=== PATIENT | female | born 1940 | race Caucasian/White ===

== ENCOUNTER 2017-07-27 12:59 | Emergency (ER) | payer OTHER ==
[~2017-07-27] VITALS: Ht 147.3 cm; Wt 64.4 kg
[~2017-07-27 12:59] MED LIST: ACET325 PO; ALBU.083IS IH; ALBU90OI6 INH; ALEN70 PO; ASCO500 PO; ASPI81CH; ASPI81CH PO; AZIT250 PO; BENADRYL25 MG PO; BENZ100A; BUME1 PO; Bumetanide0.5 MG PO; CEPH250A PO; CEPH500 PO; CHOL10002 PO; DOCU100 PO; FAMO20 PO; FELO5CR PO; FERR325 PO; FISH1000; FLUSAL1005 IH; FLUSAL2505 IH; FURO20 PO; Felodipine ER5 MG PO; LEVSOD100 PO; LEVSOD125 PO; LOSA50 PO; METF500 PO; METF500C; OMEP20ER; OMEP20ER PO; PLENDIL; POTA20PAC PO; POTCHL20ER PO; PRED10 PO; PRED20 PO; Prednisone20 MG PO; Prilosec Otc20 MG PO; VIT1CAPS12; VIT1CAPS12 PO; WARF3 PO; WARF4 PO
[2017-07-27] MEDS ORDERED: FLUT1DIS5 INH (14:28)
[2017-07-27 15:12] LABS: BASOPHILS ABSOLUTE AUTO 0.05 K/mm3 (0.00-0.23); BASOPHILS PERCENT AUTO 1 % (0-2); EOSINOPHILS ABSOLUTE AUTO 0.49 K/mm3 (0.00-0.68); EOSINOPHILS PERCENT AUTO 5 % (0-6); Hematocrit 40.4 % (33.0-51.0); Hemoglobin 12.5 g/dL (11.5-16.0); IMMATURE GRAN ABSOLUTE AUTO 0.03 K/mm3 (0.00-0.10); IMMATURE GRAN PERCENT AUTO 0 % (0-1); LYMPHOCYTES ABSOLUTE AUTO 2.57 K/mm3 (0.84-5.20); LYMPHOCYTES PERCENT AUTO 25 % (21-46); MONOCYTES ABSOLUTE AUTO 0.82 K/mm3 (0.16-1.47); MONOCYTES PERCENT AUTO 8 % (4-13); Mean Corpuscular HGB 26.2 pg (26.0-34.0); Mean Corpuscular HGB Conc 30.9 g/dL (31.5-36.5); Mean Corpuscular Volume 85 fL (80-100); Mean Platelet Volume 10.3 fL (9.1-12.4); NEUTROPHILS ABSOLUTE AUTO 6.41 K/mm3 (1.96-9.15); NEUTROPHILS PERCENT AUTO 62 % (41-73); Platelet Count 395 K/mm3 (150-400); RDW Coefficient Variation 15.6 % (11.7-14.2); RDW Standard Deviation 48.5 fL (35.1-46.3); Red Blood Cell Count 4.77 M/mm3 (3.80-5.20); White Blood Cell Count 10.37 K/mm3 (4.00-11.30)
[2017-07-27] MEDS ORDERED: DOCU100 PO (15:26)
[2017-07-27] MEDS ORDERED: LOSA50 PO ×2 (15:28)
[2017-07-27] MEDS ORDERED: TIROSINT100 MCG PO (15:28)
[2017-07-27 15:33] LABS: Alanine Aminotransfer (ALT/SGP 31 U/L (12-78); Albumin, Blood 3.4 g/dL (3.4-5.0); Albumin/Globulin Ratio 0.8 (0.8-1.8); Alk Phos 89 U/L (50-136); Anion Gap 7 mmol/L (6-16); Aspartate Aminotrans (AST/SGOT 18 U/L (12-37); Bilirubin, Total 0.2 mg/dL (0.1-1.0); Blood Urea Nitrogen 26 mg/dL (8-24); Bun/Creatinine Ratio 33.1 (12.0-20.0); CO2, Blood 27 mmol/L (21-32); Calcium, Blood 10.4 mg/dL (8.5-10.1); Chloride, Blood 105 mmol/L (98-108); Creatinine, Blood 0.79 mg/dL (0.40-1.00); Glomerular Filtration Rate >60 (60-); Glucose, Blood 78 mg/dL (70-99); Potassium, Blood 4.4 mmol/L (3.5-5.5); Sodium, Blood 139 mmol/L (136-145); Total Protein, Blood 7.4 g/dL (6.4-8.2)
== END 2017-07-27 17:25 | disposition home or self-care (01) ==
LOC: ER 12:59
PROVIDERS: Emergency Medicine
DX: I48.0 Paroxysmal atrial fibrillation (principal); J44.9 Chronic obstructive pulmonary disease, unspecified; Z87.891 Personal history of nicotine dependence
CPT/HCPCS: 36415; 80053; 85025; 93005; 93010; 99283

== ENCOUNTER → 2018-01-16 | Outpatient (CLI) | payer OTHER ==
[~2018-01-16] MED LIST changes: -ASPI81CH; +Bactrim Ds Tab1 EACH PO; +ELIQUIS5 MG PO; +FLUT1DIS5 INH; -METF500 PO; +METF850 PO; +TIROSINT100 MCG PO
[2018-01-16 13:46] LABS: Hematocrit 39.7 % (33.0-51.0); Hemoglobin 12.1 g/dL (11.5-16.0); Mean Corpuscular HGB 25.4 pg (26.0-34.0); Mean Corpuscular HGB Conc 30.5 g/dL (31.5-36.5); Mean Corpuscular Volume 83 fL (80-100); Mean Platelet Volume 10.6 fL (9.1-12.4); Platelet Count 365 K/mm3 (150-400); RDW Coefficient Variation 15.5 % (11.7-14.2); RDW Standard Deviation 46.9 fL (35.1-46.3); Red Blood Cell Count 4.76 M/mm3 (3.80-5.20); White Blood Cell Count 8.25 K/mm3 (4.00-11.30)
[2018-01-16 13:55] LABS: Alanine Aminotransfer (ALT/SGP 21 U/L (12-78); Albumin, Blood 3.4 g/dL (3.4-5.0); Albumin/Globulin Ratio 0.8 (0.8-1.8); Alk Phos 86 U/L (50-136); Anion Gap 10 mmol/L (6-16); Aspartate Aminotrans (AST/SGOT 15 U/L (12-37); Bilirubin, Total 0.3 mg/dL (0.1-1.0); Blood Urea Nitrogen 26 mg/dL (8-24); Bun/Creatinine Ratio 26.9 (12.0-20.0); CHOL/HDL RATIO 3.4; CO2, Blood 27 mmol/L (21-32); Calcium, Blood 9.6 mg/dL (8.5-10.1); Chloride, Blood 105 mmol/L (98-108); Cholesterol 169 mg/dL (50-200); Creatinine, Blood 0.97 mg/dL (0.40-1.00); Globulin, Blood 4.3 g/dL (2.2-4.0); Glomerular Filtration Rate 59 (60-); Glucose, Blood 100 mg/dL (70-99); HDL Cholesterol 50 mg/dL (>39); Low Density Lipoprotein Chol 99 mg/dL (0-110); Potassium, Blood 3.8 mmol/L (3.5-5.5); Sodium, Blood 142 mmol/L (136-145); Total Protein, Blood 7.7 g/dL (6.4-8.2); Triglycerides 100 mg/dL (30-160); Very Low Density Lipoprot Chol 20 mg/dL (6-32)
== END | disposition home or self-care (01) ==
LOC: LAB SHORT 08:07 → LAB 08:07
PROVIDERS: Family Medicine
DX: I10 Essential (primary) hypertension (principal); E78.5 Hyperlipidemia, unspecified; E03.9 Hypothyroidism, unspecified; E11.9 Type 2 diabetes mellitus without complications
CPT/HCPCS: 36415; 80053; 80061; 83036; 84443; 85027

== ENCOUNTER → 2018-04-30 | Outpatient (CLI) | payer OTHER ==
[2018-04-30 14:34] LABS: BASOPHILS ABSOLUTE AUTO 0.06 K/mm3 (0.00-0.23); BASOPHILS PERCENT AUTO 1 % (0-2); EOSINOPHILS PERCENT AUTO 4 % (0-6); Hemoglobin 11.4 g/dL (11.5-16.0); IMMATURE GRAN ABSOLUTE AUTO 0.02 K/mm3 (0.00-0.10); IMMATURE GRAN PERCENT AUTO 0 % (0-1); LYMPHOCYTES ABSOLUTE AUTO 2.42 K/mm3 (0.84-5.20); LYMPHOCYTES PERCENT AUTO 24 % (21-46); MONOCYTES ABSOLUTE AUTO 0.88 K/mm3 (0.16-1.47); MONOCYTES PERCENT AUTO 9 % (4-13); Mean Corpuscular HGB 25.4 pg (26.0-34.0); Mean Corpuscular HGB Conc 31.7 g/dL (31.5-36.5); Mean Corpuscular Volume 80 fL (80-100); Mean Platelet Volume 9.6 fL (9.1-12.4); NEUTROPHILS ABSOLUTE AUTO 6.27 K/mm3 (1.96-9.15); NEUTROPHILS PERCENT AUTO 62 % (41-73); Platelet Count 335 K/mm3 (150-400); RDW Coefficient Variation 16.7 % (11.7-14.2); RDW Standard Deviation 48.8 fL (35.1-46.3); Red Blood Cell Count 4.48 M/mm3 (3.80-5.20); White Blood Cell Count 10.05 K/mm3 (4.00-11.30)
[2018-04-30 14:51] LABS: Albumin, Blood 3.4 g/dL (3.4-5.0); Albumin/Globulin Ratio 0.9 (0.8-1.8); Bilirubin, Total 0.1 mg/dL (0.1-1.0); Bun/Creatinine Ratio 24.5 (12.0-20.0); Calcium, Blood 10.2 mg/dL (8.5-10.1); Creatinine, Blood 0.94 mg/dL (0.40-1.00); Globulin, Blood 3.9 g/dL (2.2-4.0); Total Protein, Blood 7.3 g/dL (6.4-8.2)
== END ==
LOC: LAB SHORT 14:30 → LAB EV 14:30
PROVIDERS: Emergency Medicine
DX: R53.83 Other fatigue (principal)
CPT/HCPCS: 80053; 85025; 87077; 87086; 87186

== ENCOUNTER → 2018-05-03 | Outpatient (CLI) | payer OTHER ==
[2018-05-03 10:12] LABS: Source, Urine Clean Catch
[2018-05-03 10:23] LABS: Bilirubin, Urine Neg (Neg); Blood, Urine 4+ (Neg); Glucose Qualitative, Urine Neg (Neg); Ketones, Urine Neg (Neg); Leukocyte Esterase, Urine 2+ (Neg); Nitrite, Urine Neg (Neg); Protein, Urine 1+ (Neg); Urobilinogen, Urine NORM (Normal); pH, Urine 6.5 (5.0-8.0)
[2018-05-03 10:31] LABS: Appearance, Urine Hazy (Clear); Color, Urine Yellow (P-Yellow)
[2018-05-03 10:32] LABS: Bacteria Rare /hpf; Squamous Epithelial Cells Few /hpf (Few)
== END | disposition home or self-care (01) ==
LOC: LAB 10:09 → LAB SHORT 10:09
PROVIDERS: Family Medicine
DX: N39.0 Urinary tract infection, site not specified (principal)
CPT/HCPCS: 81001; 87086

== ENCOUNTER → 2018-06-18 | Outpatient (CLI) | payer OTHER | LOC: LAB SHORT 14:23 → LAB 14:23 | DX: R82.90 Unspecified abnormal findings in urine (principal); R35.0 Frequency of micturition | CPT/HCPCS: 87077; 87086; 87186 ==

== ENCOUNTER → 2018-07-11 | Outpatient (CLI) | payer OTHER ==
[2018-07-12 11:00] LABS: Bilirubin, Urine Neg (Neg); Blood, Urine 5+ (Neg); Glucose Qualitative, Urine Neg (Neg); Ketones, Urine Neg (Neg); Leukocyte Esterase, Urine 3+ (Neg); Nitrite, Urine Pos (Neg); Protein, Urine 2+ (Neg); Specific Gravity, Urine 1.015 (1.003-1.022); Urobilinogen, Urine NORM (Normal)
[2018-07-12 11:06] LABS: Appearance, Urine Hazy (Clear); Color, Urine Yellow (P-Yellow)
[2018-07-12 11:07] LABS: Bacteria Many /hpf; Red Blood Cells, Urine 50-100 /hpf (0-2); White Blood Cells, Urine 50-100 /hpf (0-5)
[2018-07-12 11:08] LABS: Calcium Oxalate Crystals Many /hpf; Squamous Epithelial Cells Mod /hpf (Few)
[2018-07-12 11:09] LABS: Transitional Epithelial Cells Few /hpf (0-Rare)
== END | disposition home or self-care (01) ==
LOC: LAB 05:00 → LAB SHORT 05:00
PROVIDERS: Family Medicine
DX: N39.0 Urinary tract infection, site not specified (principal)
CPT/HCPCS: 81001; 87077; 87086; 87186

== ENCOUNTER 2019-01-01 18:55 | Emergency (ER) | payer OTHER ==
[~2019-01-01] VITALS: Ht 147.3 cm; Wt 59.0 kg
[~2019-01-01 18:55] MED LIST changes: -Bumetanide0.5 MG PO; +Bumetanide1 MG PO; +LOSA25 PO
[2019-01-01] MEDS ORDERED: FLUT1DIS5 INH (19:14)
[2019-01-01] MEDS ORDERED: FERSU300 PO (19:16)
[2019-01-01] MEDS ORDERED: METO25ER PO (19:17)
[2019-01-01] MEDS ORDERED: VITAMIN B-121000 MC2 PO (19:19)
[2019-01-01] MEDS ORDERED: ALBU3IS INH (19:21)
[2019-01-01] MEDS ORDERED: Zofran8 MG PO (19:22)
[2019-01-01] MEDS ORDERED: Pedi-Dri 100,0060 GM TOP (19:23)
[2019-01-01 19:45] LABS: BASOPHILS ABSOLUTE AUTO 0.05 K/mm3 (0.00-0.23); BASOPHILS PERCENT AUTO 0 % (0-2); EOSINOPHILS ABSOLUTE AUTO 0.04 K/mm3 (0.00-0.68); EOSINOPHILS PERCENT AUTO 0 % (0-6); Hematocrit 42.6 % (33.0-51.0); Hemoglobin 13.3 g/dL (11.5-16.0); IMMATURE GRAN ABSOLUTE AUTO 0.07 K/mm3 (0.00-0.10); IMMATURE GRAN PERCENT AUTO 0 % (0-1); LYMPHOCYTES PERCENT AUTO 9 % (21-46); MONOCYTES ABSOLUTE AUTO 1.13 K/mm3 (0.16-1.47); MONOCYTES PERCENT AUTO 7 % (4-13); Mean Corpuscular HGB 29.3 pg (26.0-34.0); Mean Corpuscular HGB Conc 31.2 g/dL (31.5-36.5); Mean Corpuscular Volume 94 fL (80-100); Mean Platelet Volume 10.2 fL (9.1-12.4); NEUTROPHILS ABSOLUTE AUTO 13.36 K/mm3 (1.96-9.15); NEUTROPHILS PERCENT AUTO 83 % (41-73); Platelet Count 325 K/mm3 (150-400); RDW Coefficient Variation 15.2 % (11.7-14.2); RDW Standard Deviation 53.1 fL (35.1-46.3); Red Blood Cell Count 4.54 M/mm3 (3.80-5.20); White Blood Cell Count 16.05 K/mm3 (4.00-11.30)
[2019-01-01 20:08] LABS: Alanine Aminotransfer (ALT/SGP 25 U/L (12-78); Albumin, Blood 3.3 g/dL (3.4-5.0); Albumin/Globulin Ratio 0.8 (0.8-1.8); Alk Phos 76 U/L (50-136); Anion Gap 8 mmol/L (6-16); Aspartate Aminotrans (AST/SGOT 22 U/L (12-37); Bilirubin, Total 0.5 mg/dL (0.1-1.0); Blood Urea Nitrogen 16 mg/dL (8-24); Bun/Creatinine Ratio 22.1 (12.0-20.0); CO2, Blood 24 mmol/L (21-32); Calcium, Blood 9.8 mg/dL (8.5-10.1); Chloride, Blood 106 mmol/L (98-108); Creatinine, Blood 0.72 mg/dL (0.40-1.00); Globulin, Blood 4.2 g/dL (2.2-4.0); Glomerular Filtration Rate >60 (60-); Glucose, Blood 194 mg/dL (70-99); Potassium, Blood 3.9 mmol/L (3.5-5.5); Sodium, Blood 138 mmol/L (136-145); Total Protein, Blood 7.5 g/dL (6.4-8.2)
[2019-01-01] MEDS ORDERED: Augmentin 875-1 EACH PO (20:26)
== END 2019-01-01 21:37 | disposition home or self-care (01) ==
LOC: ER 18:55
PROVIDERS: Emergency Medicine
DX: I48.91 Unspecified atrial fibrillation (principal); J40 Bronchitis, not specified as acute or chronic; J44.9 Chronic obstructive pulmonary disease, unspecified; I50.9 Heart failure, unspecified; Z79.899 Other long term (current) drug therapy; Z79.82 Long term (current) use of aspirin; Z79.84 Long term (current) use of oral hypoglycemic drugs; Z79.51 Long term (current) use of inhaled steroids; Z79.01 Long term (current) use of anticoagulants; Z99.81 Dependence on supplemental oxygen; Z87.891 Personal history of nicotine dependence
CPT/HCPCS: 36415; 71045; 80053; 84484; 85025; 93005; 93010; 99285-25

== ENCOUNTER 2019-01-04 11:52 | Emergency (ER) | payer OTHER ==
[~2019-01-04] VITALS: Ht 147.3 cm; Wt 61.2 kg
[~2019-01-04 11:52] MED LIST changes: +ALBU3IS INH; +Augmentin 875-1 EACH PO; +FERSU300 PO; +METO25ER PO; +Pedi-Dri 100,0060 GM TOP; +VITAMIN B-121000 MC2 PO; +Zofran8 MG PO
[2019-01-04 12:33] LABS: BASOPHILS ABSOLUTE AUTO 0.03 K/mm3 (0.00-0.23); BASOPHILS PERCENT AUTO 0 % (0-2); EOSINOPHILS ABSOLUTE AUTO 0.24 K/mm3 (0.00-0.68); EOSINOPHILS PERCENT AUTO 2 % (0-6); Hematocrit 40.4 % (33.0-51.0); Hemoglobin 12.7 g/dL (11.5-16.0); IMMATURE GRAN ABSOLUTE AUTO 0.05 K/mm3 (0.00-0.10); IMMATURE GRAN PERCENT AUTO 1 % (0-1); LYMPHOCYTES ABSOLUTE AUTO 1.31 K/mm3 (0.84-5.20); LYMPHOCYTES PERCENT AUTO 13 % (21-46); MONOCYTES ABSOLUTE AUTO 0.86 K/mm3 (0.16-1.47); MONOCYTES PERCENT AUTO 9 % (4-13); Mean Corpuscular HGB 28.7 pg (26.0-34.0); Mean Corpuscular HGB Conc 31.4 g/dL (31.5-36.5); Mean Platelet Volume 10.4 fL (9.1-12.4); NEUTROPHILS PERCENT AUTO 75 % (41-73); Platelet Count 295 K/mm3 (150-400); RDW Standard Deviation 49.9 fL (35.1-46.3); Red Blood Cell Count 4.42 M/mm3 (3.80-5.20); White Blood Cell Count 10.09 K/mm3 (4.00-11.30)
[2019-01-04 12:37] LABS: Mean Corpuscular Volume 91 fL (80-100)
[2019-01-04 12:52] LABS: Alanine Aminotransfer (ALT/SGP 22 U/L (12-78); Albumin, Blood 2.9 g/dL (3.4-5.0); Albumin/Globulin Ratio 0.7 (0.8-1.8); Alk Phos 78 U/L (50-136); Anion Gap 8 mmol/L (6-16); Aspartate Aminotrans (AST/SGOT 25 U/L (12-37); Bilirubin, Total 0.5 mg/dL (0.1-1.0); Blood Urea Nitrogen 17 mg/dL (8-24); Bun/Creatinine Ratio 23.1 (12.0-20.0); CO2, Blood 27 mmol/L (21-32); Calcium, Blood 9.9 mg/dL (8.5-10.1); Chloride, Blood 108 mmol/L (98-108); Creatinine, Blood 0.74 mg/dL (0.40-1.00); Globulin, Blood 4.2 g/dL (2.2-4.0); Glomerular Filtration Rate >60 (60-); Glucose, Blood 107 mg/dL (70-99); Potassium, Blood 4.2 mmol/L (3.5-5.5); Sodium, Blood 143 mmol/L (136-145); Total Protein, Blood 7.1 g/dL (6.4-8.2)
[2019-01-04] MEDS ORDERED: BENZ100A PO ×2 (13:22→13:53)
== END 2019-01-04 14:54 | disposition home or self-care (01) ==
LOC: ER 11:52
PROVIDERS: Physician Assistant
DX: J40 Bronchitis, not specified as acute or chronic (principal); R04.2 Hemoptysis; I48.91 Unspecified atrial fibrillation; Z79.899 Other long term (current) drug therapy; Z79.01 Long term (current) use of anticoagulants; Z79.84 Long term (current) use of oral hypoglycemic drugs
CPT/HCPCS: 36415; 71046; 80053; 85025; 93005; 93010; 99284-25

== ENCOUNTER 2019-03-17 17:47 | Inpatient (IN) | payer OTHER ==
[~2019-03-17] VITALS: Ht 147.3 cm; Wt 54.6 kg
[~2019-03-17 17:47] MED LIST changes: +ALBU2.5V5 NEB; -ALBU3IS INH; +BENZ100A PO; -CHOL10002 PO; +ELIQUIS2.5 MG PO; -ELIQUIS5 MG PO; +METF500 PO; -METF850 PO; -METO25ER PO; +METO50ER PO; +POTA10T PO; -POTCHL20ER PO; +VITAMIN D32000 UNI3 PO
[2019-03-17 18:32] LABS: BASOPHILS ABSOLUTE AUTO 0.05 K/mm3 (0.00-0.23); BASOPHILS PERCENT AUTO 1 % (0-2); EOSINOPHILS ABSOLUTE AUTO 0.37 K/mm3 (0.00-0.68); EOSINOPHILS PERCENT AUTO 3 % (0-6); Hematocrit 38.6 % (33.0-51.0); Hemoglobin 12.1 g/dL (11.5-16.0); IMMATURE GRAN ABSOLUTE AUTO 0.03 K/mm3 (0.00-0.10); IMMATURE GRAN PERCENT AUTO 0 % (0-1); LYMPHOCYTES ABSOLUTE AUTO 1.59 K/mm3 (0.84-5.20); LYMPHOCYTES PERCENT AUTO 15 % (21-46); MONOCYTES ABSOLUTE AUTO 0.78 K/mm3 (0.16-1.47); MONOCYTES PERCENT AUTO 7 % (4-13); Mean Corpuscular HGB 29.7 pg (26.0-34.0); Mean Corpuscular HGB Conc 31.3 g/dL (31.5-36.5); Mean Corpuscular Volume 95 fL (80-100); Mean Platelet Volume 10.1 fL (9.1-12.4); NEUTROPHILS ABSOLUTE AUTO 7.95 K/mm3 (1.96-9.15); NEUTROPHILS PERCENT AUTO 74 % (41-73); Platelet Count 304 K/mm3 (150-400); RDW Coefficient Variation 14.1 % (11.7-14.2); RDW Standard Deviation 49.1 fL (35.1-46.3); Red Blood Cell Count 4.07 M/mm3 (3.80-5.20); White Blood Cell Count 10.77 K/mm3 (4.00-11.30)
[2019-03-17 18:52] LABS: Albumin, Blood 3.2 g/dL (3.4-5.0); Albumin/Globulin Ratio 0.9 (0.8-1.8); Bilirubin, Total 0.3 mg/dL (0.1-1.0); Bun/Creatinine Ratio 18.1 (12.0-20.0); Calcium, Blood 9.9 mg/dL (8.5-10.1); Creatinine, Blood 0.99 mg/dL (0.40-1.00); Globulin, Blood 3.7 g/dL (2.2-4.0); Potassium, Blood 4.2 mmol/L (3.5-5.5); Total Protein, Blood 6.9 g/dL (6.4-8.2); Troponin I 0.021 ng/mL (0.000-0.040)
[2019-03-17] MEDS ORDERED: BENZ100A PO (20:39)
[2019-03-17] MEDS ORDERED: ACET325 PO (20:52)
[2019-03-17] MEDS ORDERED: Calcium Carbon500 MG PO (21:00)
[2019-03-17] MEDS ORDERED: Anti-Diarrheal2 MG PO (21:01)
[2019-03-17] MEDS ORDERED: [UNRECOGNIZED DRUG - OTHER] TOP (21:03)
[2019-03-17] MEDS ORDERED: MIRALAX17 GM PO (21:05)
[2019-03-17] MEDS ORDERED: Preparation H1 EAC1 PR (21:07)
[2019-03-17] MEDS ORDERED: Proctosol HC30 GM PR (21:07)
[2019-03-18 04:16] LABS: Bun/Creatinine Ratio 13.9 (12.0-20.0); Calcium, Blood 9.3 mg/dL (8.5-10.1); Creatinine, Blood 1.15 mg/dL (0.40-1.00); Magnesium, Blood 1.8 mg/dL (1.6-2.4); Potassium, Blood 4.2 mmol/L (3.5-5.5)
--- NOTE | 2019-03-18 06:50 | NUR ---
arrived from er very wet and confused, changed clothes and bedding got her ready for sleep eduardo, call light in reach, a+o, compliant with care, no more complaints of sob, no s/sx of confusion, bsr shared with pt and day staff
--- NOTE | 2019-03-18 18:40 | NUR ---
SHIFT SUMMARY PT HAD AN UNEVENTFUL DAY. PT IS A-FIB ON TELE AND REMAINS ON 2LNC PER HOME O2 SETTINGS. PT HAD MULTIPLE VISITORS THS AFTERNOON AND SEEMED TO ENJOY THE ATTENTION. PT IS INCONTINENT AT TIMES, SO IT IS DIFFICULT TO GET ACCURATE I&O'S. VITALS HAVE BEEN STABLE.
--- NOTE | 2019-03-19 03:07 | NUR ---
SHIFT SUMMARY: 78 Y/O FEMALE RESTED COMFORTABLY ALL SHIFT LOW FOWLERS, TELEMETRY REFLECTS A/FIB WITH BBB AND HEART RATE 100 PER [place] [employer] APPLICATIONS ANALYST, PASSED LARGE AMOUNTS URINE VIA ATTENDS AFTER LASIX WAS GIVEN PRIOR START OF THIS SHIFT, DENIES PAIN OR NAUSEA, HAPPY AND COOPERATIVE, BED LOW POSITION WITH CALL LIGHT AT SIDE.
--- NOTE | 2019-03-19 06:00 | NUR ---
ASSUMED CARE AT AT 0330. CONVERSIVE AND NO ACUTE ISSUES. NO CHANGE FROM ABOVE NOTE. VOIDED INCINTINENT AND ON BED PANTOJA
--- NOTE | 2019-03-19 09:00 | NUR ---
ASSUMED CARE AT APPROXIMATELY 0800 PT ALERT AND ORIENTED. VS STABLE. O2 SATS REMAIN ABOVE 90% ON 2L NC. DR. SKY IN WITH NEW ORDERS TO REPLACE POTASSIUM AND THEN PT ABLE TO DISCHARGE THIS AFTERNOON. WILL CONTINUE TO MONITOR CLOSELY.
[2019-03-19 09:18] LABS: Bun/Creatinine Ratio 17.5 (12.0-20.0); Calcium, Blood 9.8 mg/dL (8.5-10.1); Creatinine, Blood 1.03 mg/dL (0.40-1.00); Potassium, Blood 3.1 mmol/L (3.5-5.5)
[2019-03-19] MEDS ORDERED: Preparation H26 GM PR (15:35)
[2019-03-19] MEDS ORDERED: POTCHL20ER PO (15:36)
[2019-03-19] MEDS ORDERED: EUTHYROX200 MCG PO (15:36)
--- NOTE | 2019-03-19 16:04 | NUR ---
UPDATE DISCHARGE INSTRUCTIONS PROVIDED. IV REMOVED. MEDICATIONS FAXED TO [facility]. PT DRESSED AND WAITING FOR TRANSPORT. PT HAS PORTABLE O2 FOR TRANSPORTATION.
== END 2019-03-19 16:48 | disposition other institution (70) | DRG 291 ==
LOC: ER 17:47 → PCU 19:50
PROVIDERS: Emergency Medicine; Internal Medicine Endocrinology, Diabetes & Metabolism; ADMIT Hospitalist
DX: I11.0 Hypertensive heart disease with heart failure (principal); J18.9 Pneumonia, unspecified organism; T17.400A Unspecified foreign body in trachea causing asphyxiation, initial encounter; J44.0 Chronic obstructive pulmonary disease with (acute) lower respiratory infection; I50.33 Acute on chronic diastolic (congestive) heart failure; E11.9 Type 2 diabetes mellitus without complications; K21.9 Gastro-esophageal reflux disease without esophagitis; E03.9 Hypothyroidism, unspecified; D50.9 Iron deficiency anemia, unspecified; I48.0 Paroxysmal atrial fibrillation; Z79.01 Long term (current) use of anticoagulants; Z99.81 Dependence on supplemental oxygen; Z87.891 Personal history of nicotine dependence
CPT/HCPCS: 36415; 71046; 80048; 80053; 82947; 83735; 83880; 84145; 84484; 85025; 92610; 93005; 93010; 93306; 94640; 94760; 96365; 96367; 96375; 99285-25; A9270; J0456; J0696; J1940; J3480; J7050

== ENCOUNTER 2019-05-03 18:24 | Emergency (ER) | payer OTHER ==
[~2019-05-03] VITALS: Ht 147.3 cm; Wt 52.2 kg
[~2019-05-03 18:24] MED LIST changes: +Anti-Diarrheal2 MG PO; +Calcium Carbon500 MG PO; +EUTHYROX200 MCG PO; +MIRALAX17 GM PO; +POTCHL20ER PO; +Preparation H1 EAC1 PR; +Preparation H26 GM PR; +Proctosol HC30 GM PR; +[UNRECOGNIZED DRUG - OTHER] TOP
[2019-05-03] MEDS ORDERED: TRELEGY ELLIPT1 EACH INH (18:55)
[2019-05-03] MEDS ORDERED: ONDA4 PO (18:58)
[2019-05-03 19:07] LABS: BASOPHILS ABSOLUTE AUTO 0.04 K/mm3 (0.00-0.23); BASOPHILS PERCENT AUTO 0 % (0-2); EOSINOPHILS ABSOLUTE AUTO 0.21 K/mm3 (0.00-0.68); EOSINOPHILS PERCENT AUTO 2 % (0-6); Hemoglobin 12.4 g/dL (11.5-16.0); IMMATURE GRAN ABSOLUTE AUTO 0.05 K/mm3 (0.00-0.10); IMMATURE GRAN PERCENT AUTO 0 % (0-1); LYMPHOCYTES ABSOLUTE AUTO 1.49 K/mm3 (0.84-5.20); LYMPHOCYTES PERCENT AUTO 13 % (21-46); MONOCYTES ABSOLUTE AUTO 0.66 K/mm3 (0.16-1.47); MONOCYTES PERCENT AUTO 6 % (4-13); Mean Corpuscular HGB 29.1 pg (26.0-34.0); Mean Corpuscular Volume 94 fL (80-100); Mean Platelet Volume 10.4 fL (9.1-12.4); NEUTROPHILS ABSOLUTE AUTO 9.33 K/mm3 (1.96-9.15); NEUTROPHILS PERCENT AUTO 79 % (41-73); Platelet Count 255 K/mm3 (150-400); RDW Coefficient Variation 14.7 % (11.7-14.2); RDW Standard Deviation 50.7 fL (35.1-46.3); Red Blood Cell Count 4.26 M/mm3 (3.80-5.20); White Blood Cell Count 11.78 K/mm3 (4.00-11.30)
[2019-05-03 19:20] LABS: Albumin, Blood 3.2 g/dL (3.4-5.0); Albumin/Globulin Ratio 0.9 (0.8-1.8); Bilirubin, Total 0.2 mg/dL (0.1-1.0); Bun/Creatinine Ratio 24.8 (12.0-20.0); Calcium, Blood 9.8 mg/dL (8.5-10.1); Creatinine, Blood 1.05 mg/dL (0.40-1.00); Globulin, Blood 3.4 g/dL (2.2-4.0); Total Protein, Blood 6.6 g/dL (6.4-8.2)
[2019-05-03 19:21] LABS: Troponin I 0.023 ng/mL (0.000-0.040)
[2019-05-03] MEDS ORDERED: PRED10 PO (19:59)
== END 2019-05-03 20:36 | disposition home or self-care (01) ==
LOC: ER 18:24
PROVIDERS: Emergency Medicine
DX: J44.1 Chronic obstructive pulmonary disease with (acute) exacerbation (principal); I11.0 Hypertensive heart disease with heart failure; I50.9 Heart failure, unspecified; I48.91 Unspecified atrial fibrillation; Z87.891 Personal history of nicotine dependence
CPT/HCPCS: 71045; 80053; 83880; 84484; 85025; 93005; 93010; 94644; 96374; 99284-25; J2930

== ENCOUNTER 2019-05-06 20:04 | Inpatient (IN) | payer OTHER ==
[~2019-05-06] VITALS: Ht 147.3 cm; Wt 55.3 kg
[~2019-05-06 20:04] MED LIST changes: +ONDA4 PO; +TRELEGY ELLIPT1 EACH INH
[2019-05-06 20:23] LABS: BASOPHILS ABSOLUTE AUTO 0.02 K/mm3 (0.00-0.23); BASOPHILS PERCENT AUTO 0 % (0-2); EOSINOPHILS ABSOLUTE AUTO 0.01 K/mm3 (0.00-0.68); EOSINOPHILS PERCENT AUTO 0 % (0-6); Hematocrit 44.6 % (33.0-51.0); Hemoglobin 13.7 g/dL (11.5-16.0); IMMATURE GRAN ABSOLUTE AUTO 0.08 K/mm3 (0.00-0.10); IMMATURE GRAN PERCENT AUTO 1 % (0-1); LYMPHOCYTES ABSOLUTE AUTO 1.95 K/mm3 (0.84-5.20); LYMPHOCYTES PERCENT AUTO 15 % (21-46); MONOCYTES ABSOLUTE AUTO 0.85 K/mm3 (0.16-1.47); MONOCYTES PERCENT AUTO 6 % (4-13); Mean Corpuscular HGB 29.1 pg (26.0-34.0); Mean Corpuscular HGB Conc 30.7 g/dL (31.5-36.5); Mean Corpuscular Volume 95 fL (80-100); Mean Platelet Volume 10.6 fL (9.1-12.4); NEUTROPHILS ABSOLUTE AUTO 10.42 K/mm3 (1.96-9.15); NEUTROPHILS PERCENT AUTO 78 % (41-73); Platelet Count 274 K/mm3 (150-400); RDW Coefficient Variation 15.2 % (11.7-14.2); Red Blood Cell Count 4.71 M/mm3 (3.80-5.20); White Blood Cell Count 13.33 K/mm3 (4.00-11.30)
[2019-05-06 20:25] LABS: PO2 Arterial 157 mmHg (80-100); pH Blood Arterial 7.35 (7.35-7.45)
[2019-05-06 20:46] LABS: Albumin, Blood 3.5 g/dL (3.4-5.0); Albumin/Globulin Ratio 0.9 (0.8-1.8); Bilirubin, Total 0.4 mg/dL (0.1-1.0); Bun/Creatinine Ratio 33.3 (12.0-20.0); Creatinine, Blood 1.14 mg/dL (0.40-1.00); Globulin, Blood 3.7 g/dL (2.2-4.0); Potassium, Blood 4.9 mmol/L (3.5-5.5); Total Protein, Blood 7.2 g/dL (6.4-8.2); Troponin I 0.024 ng/mL (0.000-0.040)
[2019-05-06] MEDS ORDERED: ALBU90OI INH (21:45)
[2019-05-06] MEDS ORDERED: ALBU2.5V5 NEB (21:45)
[2019-05-06] MEDS ORDERED: BENZ100A PO (21:46)
[2019-05-06] MEDS ORDERED: HYDHCL25 PO (21:47)
[2019-05-06] MEDS ORDERED: Preparation H1 EAC1 PR (21:48)
[2019-05-06] MEDS ORDERED: Anti-Diarrheal2 MG PO (21:49)
[2019-05-06] MEDS ORDERED: [UNRECOGNIZED DRUG - OTHER] TOP (21:51)
--- NOTE | 2019-05-06 22:12 | NUR ---
ADMIT NOTE PT FROM ER TO RM 8 PER BED AND TRANSFERED FROM COT TO BED WITH ASSIST X4. PT PLEASANT, ORIENTED, NO C/O VOICED AT THIS TIME. PT PLACED ON HEART MONITOR AND CONTINUES TO SHOW A-FIB, VS OBTAINED, HR 140s. PT POSITIONED FOR COMFORT, ASSESSMENT COMPLETED; HR IR, LUNGS WHEEZES THROUGHOUT, SOB WITH ACTIVITY, BOWEL SOUNDS PRESENT, ABD SOFT & NONTENDER, SKIN IN ROSI AREA SLIGHTLY REDDENED AND INCONT CARES COMPLETED. PT SISTER CHRIS TO VISIT PT FOR A FEW MINUTES BEFORE TAKING WET CLOTHING HOME. PT ASKING FOR A DRINK AND C/O HEADACHE AND DRINK OF WATER GIVEN. ADMIT HX & MEDICATIONS & ADMIT DONE. WILL CONTINUE TO MONITOR PT THROUGHOUT THIS SHIFT.
[2019-05-07 02:59] LABS: Source, Urine Catheter
[2019-05-07 03:01] LABS: Appearance, Urine Hazy (Clear); Bilirubin, Urine Neg (Neg); Blood, Urine 2+ (Neg); Color, Urine Yellow (P-Yellow); Glucose Qualitative, Urine Neg (Neg); Ketones, Urine Neg (Neg); Leukocyte Esterase, Urine 2+ (Neg); Nitrite, Urine Neg (Neg); Protein, Urine Neg (Neg); Urobilinogen, Urine NORM (Normal)
[2019-05-07 03:06] LABS: Bacteria Many /hpf; Red Blood Cells, Urine 0-2 /hpf (0-2); Squamous Epithelial Cells Few /hpf (Few); White Blood Cells, Urine 25-50 /hpf (0-5)
[2019-05-07 03:07] LABS: Hyaline Casts 0-2 /lpf (0-2)
[2019-05-07 03:29] LABS: Bun/Creatinine Ratio 33.3 (12.0-20.0); Calcium, Blood 9.7 mg/dL (8.5-10.1); Creatinine, Blood 1.02 mg/dL (0.40-1.00); Potassium, Blood 4.5 mmol/L (3.5-5.5)
[2019-05-07 04:14] LABS: Influenza A Positive (NEGATIVE); Influenza B Negative (NEGATIVE)
--- NOTE | 2019-05-07 06:15 | NUR ---
SHIFT SUMMARY PT RESTS IN BED THIS SHIFT, ALERT & ORIENTED. PT SOB WITH ACTIVITY, O2 @ 2L/NC AND DESAT X1 TO 88%. HEART RATE 90-120s IN A-FIB. LUNGS WHEEZES THROUGHOUT, RT TX Q6HRS. BOWEL SOUNDS PRESENT. FERNANDO TO DD WITH ONLY 30cc OUT. PERIAREA SLIGHTLY RED, STRICT I&Os. SL TO RT FA, RT HAND, AND NS INFUSING @ 150CC/HR VIA RT AC. PT HAS CHRONIC NECK PAIN. PT UP TO BSC /C MAX AX1 ONCE THIS SHIFT. BEDSIDE REPORT GIVEN TO ANGE FAUST.
--- NOTE | 2019-05-07 08:00 | NUR ---
INITIAL ASSESMENT PT ALERT AND ORIENT, DEMANDING AT TIMES AND FOLLOWS COMMANDS, DENIES PAIN, AF IN THE 110S , AFEBRILE AND PALP PULSES T/O SBP STABLE, 2 L NC WEANED TO 1L NC PT SATS IN HIGH 90S, WORK OF BREATHING AND SOB INCREASING WITH RT AWARE AND TX GIVEN WITH LITTLE EFFECT. BIPAP TO BE PLACED. EXP WHEEZING T/O AND FREQ WET NON PROD COUGH. TOLERATED PO MED PASS AND BREAKFAST. UO MARGINAL MD AWARE. SKIN INTACT. WILL CONT TO MONITOR AND SUPPORT RESP STATUS.
[2019-05-07 11:53] LABS: PCO2 Arterial 36.7 mmHg (35-45); PO2 Arterial 92.3 mmHg (80-100); pH Blood Arterial 7.41 (7.35-7.45)
--- NOTE | 2019-05-07 12:00 | NUR ---
PT UPDATE PT PLACED ON BIPAP PER MD ORDER AND WORK OF BREATHING ANS S/S OF SOB GREATLY REDUCED. VSS, HR REMAINS IN AF, TOLERATING PO INTAKE. WILL CONT TO MONITOR AND WEAN BIPAP TOLERATED.
--- NOTE | 2019-05-07 18:15 | NUR ---
Inital spiritual care note: Daniella slept peacefully while I visited with her sister at bedside. She tells me that Daniella's "been through a lot." Daniella has adult children, but according to sister, they have been estranged for many years. There are two sisters who are quite devoted to caring for Daniella. Because I could not find an advanced directive for Daniella on record, I encouraged the completion of one if sisters want to be decision makers. They are hopeful Daniella will recover from this current illness. No concerns presented. Non-taoist, but family appeared appreciative to cunsel and affirmation of excellent care. I will remain available.
--- NOTE | 2019-05-07 19:51 | NUR ---
PATIENT RESTING IN BED WATCHING TV. SOB WITH ACTIVITY, WHEEZES T/O CONTINUE. OXYGEN 1L/NC. BIPAP IN ROOM SET AT 12/6 FIO2 25% IF NEEDED FOR SOB. AFIB CONTINUES AT CONTROLLED RATE. FERNANDO IN PLACE DRAINING CLEAR YELLOW URINE. PATIENT ABLE TO ASSIST WITH REPOSITIONING FOR COMFORT.
--- NOTE | 2019-05-07 22:21 | NUR ---
WHILE SLEEPING BIOX 87-90% OXYGEN INCREASED TO 2L/NC. PATIENT AWAKENS TO SLIGHT STIMULI, VERBALIZING BEING TIRED, FALLING BACK TO SLEEP WHEN UNDISTURBED.
--- NOTE | 2019-05-08 00:22 | NUR ---
PATIENT RESTLESS AND FEELING SOB, BIOX 99% ON 2L/NC. AUDIBLE WHEEZES, UDN TX WITH BIPAP IN PLACE. TUMS GIVEN FOR C/O "HEARTBURN" POINTING TO UPPER GASTRIC AREA.
--- NOTE | 2019-05-08 00:35 | NUR ---
PATIENT VERBALIZED SHE IS FEELING BETTER AND REQUESTING BIPAP OFF. PLACED ON 2L/NC
[2019-05-08 03:13] LABS: BASOPHILS ABSOLUTE AUTO 0.02 K/mm3 (0.00-0.23); BASOPHILS PERCENT AUTO 0 % (0-2); EOSINOPHILS PERCENT AUTO 0 % (0-6); Hematocrit 39.1 % (33.0-51.0); Hemoglobin 12.3 g/dL (11.5-16.0); IMMATURE GRAN ABSOLUTE AUTO 0.13 K/mm3 (0.00-0.10); IMMATURE GRAN PERCENT AUTO 1 % (0-1); LYMPHOCYTES ABSOLUTE AUTO 0.46 K/mm3 (0.84-5.20); LYMPHOCYTES PERCENT AUTO 4 % (21-46); MONOCYTES ABSOLUTE AUTO 0.64 K/mm3 (0.16-1.47); MONOCYTES PERCENT AUTO 5 % (4-13); Mean Corpuscular HGB 29.5 pg (26.0-34.0); Mean Corpuscular HGB Conc 31.5 g/dL (31.5-36.5); Mean Corpuscular Volume 94 fL (80-100); Mean Platelet Volume 11.1 fL (9.1-12.4); NEUTROPHILS ABSOLUTE AUTO 11.38 K/mm3 (1.96-9.15); NEUTROPHILS PERCENT AUTO 90 % (41-73); Platelet Count 210 K/mm3 (150-400); RDW Coefficient Variation 15.1 % (11.7-14.2); RDW Standard Deviation 51.9 fL (35.1-46.3); Red Blood Cell Count 4.17 M/mm3 (3.80-5.20); White Blood Cell Count 12.63 K/mm3 (4.00-11.30)
[2019-05-08 03:27] LABS: Anion Gap 6 mmol/L (6-16); Blood Urea Nitrogen 37 mg/dL (8-24); Bun/Creatinine Ratio 41.1 (12.0-20.0); CO2, Blood 26 mmol/L (21-32); Calcium, Blood 9.8 mg/dL (8.5-10.1); Chloride, Blood 109 mmol/L (98-108); Glomerular Filtration Rate >60 (60-); Glucose, Blood 166 mg/dL (70-99); Potassium, Blood 4.3 mmol/L (3.5-5.5); Sodium, Blood 141 mmol/L (136-145)
--- NOTE | 2019-05-08 05:56 | NUR ---
SUMMARY PATIENT SLEEPING OFF AND ON T/O THE NIGHT. REQUIRING BIPAP ONCE DURING THE NIGHT DUE TO FEELING SOB. REMAINING ON 2L/NC T/O NIGHT WHEN AWAKE BIOX 98% WHILE SLEEPING BIOX 93%. PATIENT CONTINUES TO GET VERY WHEEZY WITH SLIGHT ACTIVITY. PATIENT C/O PAGE TWICE DURING THE NIGHT RESOLVED WITH TYLENOL BOTH TIMES.
--- NOTE | 2019-05-08 06:33 | NUR ---
PATIENT AWAKE AND ATTEMPTING TO GET OUT OF BED WITHOUT ASSISTANCE. AUDIBLE WHEEZES T/O PLACED ON BIPAP FOR APROX 5 MIN THEN PATIENT PULLING OFF BIPAP. PLACED BACK ON 2L/NC PATIENT APPEARS LESS SOB, BUT WHEEZES CONTINUE RT CALLED FOR UDN TX.
--- NOTE | 2019-05-08 16:05 | NUR ---
Telephone report received from Marquis Berg RN at this time. Anticipate pt arrival to PCU 13 shortly
--- NOTE | 2019-05-08 21:41 | NUR ---
during shift report hr was in 140's, dr prescribed medication but pt no longer met criteria for treatment when medication available, currently resting in bed with bipap running, took prescrbed medications with no issues, vss, profusion weak but < 3 sec, neuro check completed, voice soft, hob elevated, states she had a bm yesterday, bt+4q, able to make needs known, call light in reach bed in low position, will continue to monitor, treat and report until share bsr with day shift and pt, in iso for flu-A
--- NOTE | 2019-05-08 23:20 | NUR ---
HR ABOVE 120 SO MEDICATED PRESCRIBED, ALSO GAVE STEROID, HEART RATE REDUCED WILL CONTINUE TO MONITOR AND TREAT
--- NOTE | 2019-05-09 00:51 | NUR ---
FREQUENT USE OF CALL LIGHT, ENCOURAGED TO SAVE UP REQUESTS FOR WHEN STAFF ARE IN ROOM, HR ELEVATED EVERY TIME MOVED OR REPOSITIONED, FREQUENT ASSESSMENTS
[2019-05-09 03:30] LABS: BASOPHILS ABSOLUTE AUTO 0.02 K/mm3 (0.00-0.23); BASOPHILS PERCENT AUTO 0 % (0-2); EOSINOPHILS PERCENT AUTO 0 % (0-6); Hematocrit 41.9 % (33.0-51.0); IMMATURE GRAN ABSOLUTE AUTO 0.11 K/mm3 (0.00-0.10); IMMATURE GRAN PERCENT AUTO 1 % (0-1); LYMPHOCYTES PERCENT AUTO 4 % (21-46); MONOCYTES ABSOLUTE AUTO 0.61 K/mm3 (0.16-1.47); MONOCYTES PERCENT AUTO 5 % (4-13); Mean Corpuscular HGB 29.2 pg (26.0-34.0); Mean Corpuscular Volume 94 fL (80-100); Mean Platelet Volume 11.2 fL (9.1-12.4); NEUTROPHILS ABSOLUTE AUTO 12.35 K/mm3 (1.96-9.15); NEUTROPHILS PERCENT AUTO 91 % (41-73); NRBC ABSOLUTE 0.03 K/mm3 (0.00-0.02); NRBC Auto 0.2 /100 WBC (0.0-0.2); Platelet Count 241 K/mm3 (150-400); RDW Coefficient Variation 15.1 % (11.7-14.2); RDW Standard Deviation 51.8 fL (35.1-46.3); Red Blood Cell Count 4.45 M/mm3 (3.80-5.20); White Blood Cell Count 13.59 K/mm3 (4.00-11.30)
[2019-05-09 03:50] LABS: Anion Gap 7 mmol/L (6-16); Blood Urea Nitrogen 46 mg/dL (8-24); Bun/Creatinine Ratio 43.4 (12.0-20.0); CO2, Blood 26 mmol/L (21-32); Calcium, Blood 10.2 mg/dL (8.5-10.1); Chloride, Blood 107 mmol/L (98-108); Creatinine, Blood 1.06 mg/dL (0.40-1.00); Glomerular Filtration Rate 53 (60-); Glucose, Blood 187 mg/dL (70-99); Potassium, Blood 5.1 mmol/L (3.5-5.5); Sodium, Blood 140 mmol/L (136-145)
--- NOTE | 2019-05-09 07:21 | NUR ---
Bedside report was received from Abraham Lieberman RN. The pt appears to be sleeping. The pt was having difficulty breathing after attempting to sit on the side of the bed to get up and use the BSC yesterday evening around 7 pm. She required the bipap for recovery, and had elevated heart rate up to the 160s, which required her to use the bedpan to void instead. Per report, her heart rate did slow down, and did not go again above 120 (always afib), but the pt also stayed in the bed the entire night, and was incontinent of urine as well as used the bedpan to toilet. She occasionally used the bipap for a very brief period for "recovery" when she felt short of breath, per report, from noc shift.
--- NOTE | 2019-05-09 12:37 | NUR ---
Dr. Small was called at Dr. Medrano's request, to ask about changing the pt's status from PCU to medical with Telemetry monitoring. Dr. Small would like to wait until later this afternoon to reevaluate the pt.
--- NOTE | 2019-05-09 13:52 | NUR ---
Daniella is sitting up in the recliner chair, with her legs elevated, and appeared to be sleeping until she was awoken for a new IV start. She c/o the IV site on the right wrist being tender and painful when flushed with NS or gently palpated.
[2019-05-10 04:13] LABS: BASOPHILS ABSOLUTE AUTO 0.01 K/mm3 (0.00-0.23); BASOPHILS PERCENT AUTO 0 % (0-2); EOSINOPHILS PERCENT AUTO 0 % (0-6); Hematocrit 39.7 % (33.0-51.0); Hemoglobin 12.4 g/dL (11.5-16.0); IMMATURE GRAN ABSOLUTE AUTO 0.07 K/mm3 (0.00-0.10); IMMATURE GRAN PERCENT AUTO 1 % (0-1); LYMPHOCYTES ABSOLUTE AUTO 0.46 K/mm3 (0.84-5.20); LYMPHOCYTES PERCENT AUTO 4 % (21-46); MONOCYTES ABSOLUTE AUTO 0.59 K/mm3 (0.16-1.47); MONOCYTES PERCENT AUTO 5 % (4-13); Mean Corpuscular HGB Conc 31.2 g/dL (31.5-36.5); Mean Corpuscular Volume 93 fL (80-100); Mean Platelet Volume 11.1 fL (9.1-12.4); NEUTROPHILS ABSOLUTE AUTO 10.86 K/mm3 (1.96-9.15); NEUTROPHILS PERCENT AUTO 91 % (41-73); NRBC ABSOLUTE 0.03 K/mm3 (0.00-0.02); NRBC Auto 0.3 /100 WBC (0.0-0.2); Platelet Count 228 K/mm3 (150-400); RDW Standard Deviation 51.5 fL (35.1-46.3); Red Blood Cell Count 4.27 M/mm3 (3.80-5.20); White Blood Cell Count 11.99 K/mm3 (4.00-11.30)
[2019-05-10 04:31] LABS: Albumin, Blood 2.8 g/dL (3.4-5.0); Anion Gap 5 mmol/L (6-16); Blood Urea Nitrogen 47 mg/dL (8-24); Bun/Creatinine Ratio 45.2 (12.0-20.0); CO2, Blood 30 mmol/L (21-32); Calcium, Blood 9.8 mg/dL (8.5-10.1); Chloride, Blood 103 mmol/L (98-108); Creatinine, Blood 1.04 mg/dL (0.40-1.00); Glomerular Filtration Rate 54 (60-); Glucose, Blood 169 mg/dL (70-99); Phosphorus, Blood 3.5 mg/dL (2.5-4.9); Potassium, Blood 4.5 mmol/L (3.5-5.5); Sodium, Blood 138 mmol/L (136-145)
--- NOTE | 2019-05-10 07:34 | NUR ---
a+o, received report from day shift, no acute events during their shift and none during noc, pt remains very dependent but very sweet and cheerful, hr 100 rythm afib with a bbb, no bm during this shift, continued with bowel care, iv on rafi saline locked, 2L via nc, breathing treatments and hob raised, repositioned and changed frequently, continued to monitor and treat until shared bsr with day nurses and pt, call light in reach and bed in low position
--- NOTE | 2019-05-10 17:57 | NUR ---
SHIFT SUMMARY PT ALERT AND ORIENTEDD. ANSWERING QUESTIONS APPROPRIATELY. VS STABLE STATUS CHANGED TO MEDICAL. TELEMETRY SHOWING AFIB 110'S. PT COMPLAINED OF PAIN IN HER LEFT LEG THAT WAS RELIEVED WITH MEDICATION ADMINISTRATION. 02 SAT REMAIN ABOVE 90% ON 2L NC. LS COARSE THROUGHOUT. PT RECEIVED BREATHING TX NEEDED PER RT. ORDER RECEIVED FOR NO IV ACCESS DUE TO DIFFICULT TIME MAITAINING IV. WILL CONTINUE TO MONITOR AND REPORT TO ONCOMING RN. CALL LIGHT IN REACH.
--- NOTE | 2019-05-10 19:40 | NUR ---
ASSUMED CARE OF PT. IN NO ACUTE DISTRESS AT THIS TIME. DENIES ANY NEEDS AT THIS TIME, CALL LIGHT AND POSSESSIONS IN REACH. WILL CONTINUE TO MONITOR.
[2019-05-11 04:22] LABS: BASOPHILS ABSOLUTE AUTO 0.01 K/mm3 (0.00-0.23); BASOPHILS PERCENT AUTO 0 % (0-2); EOSINOPHILS PERCENT AUTO 0 % (0-6); Hemoglobin 12.1 g/dL (11.5-16.0); IMMATURE GRAN ABSOLUTE AUTO 0.15 K/mm3 (0.00-0.10); IMMATURE GRAN PERCENT AUTO 1 % (0-1); LYMPHOCYTES ABSOLUTE AUTO 0.54 K/mm3 (0.84-5.20); LYMPHOCYTES PERCENT AUTO 4 % (21-46); MONOCYTES ABSOLUTE AUTO 0.85 K/mm3 (0.16-1.47); MONOCYTES PERCENT AUTO 7 % (4-13); Mean Corpuscular HGB 29.4 pg (26.0-34.0); Mean Corpuscular HGB Conc 31.8 g/dL (31.5-36.5); Mean Corpuscular Volume 93 fL (80-100); Mean Platelet Volume 10.9 fL (9.1-12.4); NEUTROPHILS ABSOLUTE AUTO 11.32 K/mm3 (1.96-9.15); NEUTROPHILS PERCENT AUTO 88 % (41-73); NRBC ABSOLUTE 0.02 K/mm3 (0.00-0.02); NRBC Auto 0.2 /100 WBC (0.0-0.2); Platelet Count 228 K/mm3 (150-400); RDW Standard Deviation 50.2 fL (35.1-46.3); Red Blood Cell Count 4.11 M/mm3 (3.80-5.20); White Blood Cell Count 12.87 K/mm3 (4.00-11.30)
[2019-05-11 04:40] LABS: Albumin, Blood 2.6 g/dL (3.4-5.0); Anion Gap 5 mmol/L (6-16); Blood Urea Nitrogen 44 mg/dL (8-24); Bun/Creatinine Ratio 41.9 (12.0-20.0); CO2, Blood 33 mmol/L (21-32); Calcium, Blood 9.6 mg/dL (8.5-10.1); Chloride, Blood 102 mmol/L (98-108); Creatinine, Blood 1.05 mg/dL (0.40-1.00); Glomerular Filtration Rate 54 (60-); Glucose, Blood 152 mg/dL (70-99); Phosphorus, Blood 3.1 mg/dL (2.5-4.9); Potassium, Blood 4.3 mmol/L (3.5-5.5); Sodium, Blood 140 mmol/L (136-145)
--- NOTE | 2019-05-11 05:39 | NUR ---
PT RESTING IN BED COMFORTABLY AT THIS TIME, IN NO ACUTE DISTRESS. WAS MONITORED EVERY 1-2 HOURS WITH NEEDS MET. DENIES ANY NEEDS AT THIS TIME. CALL LIGHT AND POSSESSIONS IN REACH, BED IN LOW POSITION, SIDERAILS IN PLACE.
--- NOTE | 2019-05-11 12:15 | NUR ---
PT HEART RATE 110'S TO 130'S T/O SHIFT, NOTIFIED DR DEL RIO THAT HR NOT TRENDING DOWN, NEW ORDERS FOR TOPROL XL BID AND HOLD DISCHARGE.
--- NOTE | 2019-05-11 16:42 | NUR ---
SHIFT SUMMARY PT A&Ox4. CALM AND COOPERATIVE WITH CARE. PT UP IN CHAIR FOR MAJORITY OF SHIFT. LEFT SIDE WEAKNESS NOTED T/O SHIFT. 1 PERSON MAX ASSIST, 2 PERSON FOR LINES AND BSC. SOB WITH EXERTION, ON 2L O2 VIA NC AT BASELINE, SPO2 >90% T/O SHIFT. PT DENIES PAIN AND NAUSEA T/O SHIFT. HR ELEVATED THIS AM, NOTIFIED DR DEL RIO, NEW ORDERS ENTERED. HR TRENDING DOWN THIS AFTERNOON. VSS. PLANS TO DISCHARE BACK TO [facility] TOMORROW. PT TRANSFERING TO MEDICAL FLOOR, ROOM 310; REPORT GIVEN TO ANGE PATE RECEIVING CARE.
--- NOTE | 2019-05-11 18:07 | NUR ---
PT CAME FROM PCU TO ROOM 310. PT CAME VIA RECLINER AND WANTED TO STAY IN RECLINER FOR DINNER. AOX3 AND PLEASANT WITH CARE. PT EATING DINNER AND TOOK MEDICATIONS WHOLE WITH MILK. PT CONTINUES TO HAVE A FAST P OF [address] DR DEL RIO REQUESTED TELEMETRY CONTINUE FOR TONIGHT TO MONITOR RATE. WILL CONTINUE TO MONITOR.
--- NOTE | 2019-05-12 06:14 | NUR ---
SHIFT SUMMARY: 78 Y/O FEMALE RESTED COMFORTABLY ALL SHIFT WHILE WEARING C/PAP; DENIES PAIN OR NAUSEA; PT REQUIRED 100% ASSISTANCE WITH ALL ADLS THIS SHIFT; ALERT AND ORIENTED X 4; BED ALARM APPLIED, BED LOW POSITION WITH CALL LIGHT AT SIDE.
--- NOTE | 2019-05-12 12:08 | NUR ---
PT AOX3 AND COOPERATIVE OF CARE. PT EATING WELL TODAY AND SEEMS TO BE DOING WELL. MONITORING PT'S HR SHE WAS STILL IN THE 120s THIS AM. RN TACO TO TAKE OVER CARE AT THIS TIME. DENIED ANY PAIN TODAY.
--- NOTE | 2019-05-12 12:21 | NUR ---
Pallitaive Care visit: Called to room when pt's sister, Shobha, arrived. Spoke with pt and sister in the room. Daniella reports profound fatigue, sob with minimal exertion and congested cought with a lot of secretions. In talking with her and her sister, this is fairly normal for Daniella at baseline. Pt seems oriented to person, place and situation but she is not engaged in the conversation re: her wishes for care, updating her POLST form or AD. She wants to return to [facility] because her bed there is much more comfortable than the one she is in here. When asked if her sister could assist in conversation and decision making re: POLST update and options, she said, Yes, please. She is breathless. Loose productive cough noted. She reports that she is not experiencing any pain other than ache from the uncomfortable bed. Pt listened to our conversation, re: intubation, CPR, limited intervention, IV tx, CPAP/BPAP but I am uncertain if she is processing this information. Pt appears extremely frail. When asked if she had any questions or feelings about what she would want r/t those interventions she stared straight ahead. Sister was given booklet to review, Hard Choices for [place] [employer] and later completed the POLST for pt, choosing NO CPR, NO intubation, yes to noninvasive respiratory support and yes to IV fluids or antibiotics under limited treatment interventions if indicated. This was done at bedside with pt awake next to us but she did not engage or participate in the conversation for the most part other than to ask that her sister assist with completing the POLST. and RN given report on my visit. will return to sign POLST. Pt and sister given instructions to keep original with pt and give copies to her drs. RN to page me once it is signed so I can send copies to our medical records for scanning into the EMR. VM left for care managers re: plan for dc back to [facility] on Monday/tomorrow.
--- NOTE | 2019-05-12 13:40 | NUR ---
DNR ORDER VERIFIED WITH AND BAND PLACED BY JOSSIE HAGAN RN
--- NOTE | 2019-05-12 14:55 | NUR ---
NOTIFIED DR. DEL RIO OF INCREASED HR. AWARE AND STATED NO CHANGES TO BE MADE AT THIS TIME AND TO CONTINUE TO MONITOR.
--- NOTE | 2019-05-12 17:48 | NUR ---
PT AOX3 WITH MILD CONFUSION. PT CALL APPROPRIATEY AND HAS BEEN DOING WELL EATING HER MEALS AND TAKING HER MEDICATION. PT SITTING IN BED EATING DINNER AT THIS TIME. HR CONTINUES TO BE SLIGHTLY ELEVATED WILL CONTINUE TO MONITOR.
--- NOTE | 2019-05-13 04:59 | NUR ---
SHIFT SUMMARY: 78 Y/O FEMALE HAD RESTLESS SHIFT ALL NIGHT WITH PT HAVING NUMEROUS REQUESTS TO BE REPOSITIONED FOR COMFORT; C/O GENERALIZED PAIN RATED 7/10 WITH TYLENOL 650MG PO GIVEN WITH RELIEF FELT; ALSO C/O GENERALIZED STOMACH UPSET WITH TUMS X 1 TABLET GIVEN WITH RELIEF; TELEMETRY REFLECTS A/FIB WITH HEART RATE 100 PER YSABEL BAKER TEST; LUNG SOUNDS ARE DMINISHED THROUGHOUT; BED ALARM APPLIED, BED LOW POSITION WITH CALL LIGHT AT SIDE.
[2019-05-13] MEDS ORDERED: Duoneb 2.5-0.5 M3 ML INH (13:06)
[2019-05-13] MEDS ORDERED: MUSCLE RUB CRE113 GM TOP (13:08)
[2019-05-13] MEDS ORDERED: LEVOFLOXACIN750 MG PO (13:09)
--- NOTE | 2019-05-13 16:30 | NUR ---
DISCHARGE SUMMARY PT MELECIO, D/C BACK TO [facility] WHERE PT LIVES. [facility] TRANSPORTED PT. PERSCRIPTIONS SENT TO [facility]. BELONGINGS SENT WITH PT. PT ON 2L NC.
== END 2019-05-13 15:07 | disposition home or self-care (01) | DRG 189 ==
LOC: ER 20:04 → PCU 21:31 → ICUW 21:31 → ICUE 21:31 → PCU 05-08 16:15 → MEDS 05-11 16:52
PROVIDERS: Emergency Medicine; Family Medicine; Internal Medicine Pulmonary Disease; ADMIT Hospitalist
PROC: 5A09357 Assistance with Respiratory Ventilation, Less than 24 Consecutive Hours, Continuous Positive Airway Pressure (ICD-10-PCS; principal; 2019-05-07)
DX: J96.01 Acute respiratory failure with hypoxia (principal); I50.23 Acute on chronic systolic (congestive) heart failure; J44.1 Chronic obstructive pulmonary disease with (acute) exacerbation; N39.0 Urinary tract infection, site not specified; J96.02 Acute respiratory failure with hypercapnia; Z99.81 Dependence on supplemental oxygen; Z87.891 Personal history of nicotine dependence; D50.9 Iron deficiency anemia, unspecified; I48.0 Paroxysmal atrial fibrillation; J10.1 Influenza due to other identified influenza virus with other respiratory manifestations; I95.9 Hypotension, unspecified; E03.9 Hypothyroidism, unspecified; E11.9 Type 2 diabetes mellitus without complications; B96.1 Klebsiella pneumoniae [K. pneumoniae] as the cause of diseases classified elsewhere; Z79.84 Long term (current) use of oral hypoglycemic drugs
CPT/HCPCS: 36415; 36600; 51702; 71045; 71046; 80048; 80053; 80069; 81001; 82803; 82947; 83880; 84484; 85025; 87077; 87086; 87186; 87804; 92610; 93005; 93010; 94640; 94644; 94660; 94762; 97110; 97162; 97165; 97530; 97535; 99283; 99285-25; A9270; J0456; J0696; J2405; J2920; J2930; J7030; J7040; J7050; J7512

== ENCOUNTER 2019-05-28 20:53 | Emergency (ER) | payer OTHER ==
[~2019-05-28] VITALS: Ht 147.3 cm; Wt 46.7 kg
[~2019-05-28 20:53] MED LIST changes: +ALBU90OI INH; +Duoneb 2.5-0.5 M3 ML INH; +HYDHCL25 PO; +LEVOFLOXACIN750 MG PO; +MUSCLE RUB CRE113 GM TOP; +[UNRECOGNIZED DRUG - OTHER] TOP
[2019-05-28 23:02] LABS: Hematocrit 37.2 % (33.0-51.0)
== END 2019-05-28 23:52 | disposition home or self-care (01) ==
LOC: ER 20:53
PROVIDERS: Physician Assistant
DX: K64.4 Residual hemorrhoidal skin tags (principal); I11.0 Hypertensive heart disease with heart failure; I48.91 Unspecified atrial fibrillation; E11.9 Type 2 diabetes mellitus without complications; J44.9 Chronic obstructive pulmonary disease, unspecified; E03.9 Hypothyroidism, unspecified; D50.9 Iron deficiency anemia, unspecified; I50.22 Chronic systolic (congestive) heart failure; Z79.51 Long term (current) use of inhaled steroids; Z79.899 Other long term (current) drug therapy
CPT/HCPCS: 85014; 85018; 99283